=== PATIENT | male | born 1950 | race Caucasian/White ===

== ENCOUNTER → 2020-01-23 | Emergency (ER) | payer SELFPAY ==
[~2020-01-23] VITALS: Ht 188 cm; Wt 97.5 kg
[~2020-01-23] MED LIST: GASTROGRAFIN 30 ML SOL ONE; IOHEXOL 300 MG/ML 100ML BOTTLE IJ ONE; MORPHINE SULF INJ 2 MG/ML SYRINGE 1ML IV ONE; MORPHINE SULFATE 4 MG/ML SYR/VIAL IV ONE; ONDANSETRON HCL 4 MG/2 ML VIAL IV ONE; PIPERACILLIN-TAZOB 3.375GM 100 ML IV ONE; VANCOMYCIN 1GM/250ML 250 ML IV ONE
[2020-01-23 01:59] LABS: Basophils # (auto) 0 10 ^3/uL (0-0.2); Basophils % (auto) 0.1 % (0.0-2.0); Eosinophils # (auto) 0 10 ^3/uL (0-0.8); Eosinophils % (auto) 0.1 % (0.0-7.0); Hematocrit 42.2 % (41.0-53.0); Hemoglobin 14.3 g/dL (13.5-17.5); Lymphocytes # (auto) 0.9 10 ^3/uL (0.4-5.4); Lymphocytes % (auto) 6.1 % (10.0-50.0); Mean Corpuscular Hemoglobin 30.7 pg (28.0-32.0); Mean Corpuscular Hgb Conc. 33.9 g/dL (32.0-36.0); Mean Corpuscular Volume 90.5 fL (80.0-100.0); Monocytes # (auto) 1.4 10 ^3/uL (0-1.3); Monocytes % (auto) 9.8 % (0.0-12.0); Neutrophils % (auto) 83.9 % (37.0-80.0); Nucleated Red Blood Cells % 0.1 %; Platelet Count (auto) 253 10^3/uL (140-450); Red Blood Cells 4.66 10^6/uL (4.5-5.90); White Blood Cell 14.3 10^3/uL (4.4-10.8)
[2020-01-23 02:10] LABS: INR 1.07 (0.9-1.15); Partial Thromboplastin Time 32.2 sec (23.64-32.05)
[2020-01-23 02:11] LABS: Alanine Aminotransferase 35 U/L (16-61); Albumin 2.6 g/dL (3.4-5.0); Amylase 37 U/L (25-115); Anion Gap 4 (5-15); BUN/Creatinine Ratio 13.8; Blood Urea Nitrogen 13 mg/dL (7-18); Calcium 7.8 mg/dL (8.5-10.1); Carbon Dioxide 32 mmol/L (21-32); Chloride 94 mmol/L (98-107); GFR African American 103 mL/min; GFR Non-African American 85 mL/min; Glucose 134 mg/dL (74-106); Lipase 185 U/L (73-393); Magnesium 2.4 mg/dL (1.6-2.6); Potassium 3.3 mmol/L (3.5-5.1); Sodium 130 mmol/L (136-145)
[2020-01-23 02:16] LABS: Alkaline Phosphatase 77 U/L (45-117); Aspartate Aminotransferase 37 U/L (15-37); Bilirubin, Total 0.9 mg/dL (0.2-1.0)
[2020-01-23 06:10] LABS: Urine Bacteria NONE SEEN /hpf (None Seen); Urine Blood 1+ /uL (Negative); Urine Specific Gravity 1.045 (1.001-1.035); Urine WBC 1 /hpf (0 - 3)
[2020-01-23 07:03] LABS: Hematocrit 41.5 % (41.0-53.0); Hemoglobin 14.2 g/dL (13.5-17.5)
[2020-01-23 09:00] VITALS: BP 121/71
== END | disposition home or self-care (01) ==
LOC: EDUNIT# 01:13 → EDSEX 01:19 → EDBD 01:19 → ER 01:30
DX: K40.90 Unilateral inguinal hernia, without obstruction or gangrene, not specified as recurrent (principal); J18.1 Lobar pneumonia, unspecified organism; F10.21 Alcohol dependence, in remission; I42.6 Alcoholic cardiomyopathy; F17.210 Nicotine dependence, cigarettes, uncomplicated; Z88.5 Allergy status to narcotic agent; Y90.8 Blood alcohol level of 240 mg/100 ml or more
CPT/HCPCS: 36415; 71045; 74176; 74177; 80053; 80320; 81001; 82140; 82150; 83605; 83690; 83735; 83880; 84484; 85014; 85018; 85025; 85610; 85730; 87040; 96365; 96375; 96376; 99285; J2270; J2405; J2543; J3370; Q9963; Q9967; 93005